=== PATIENT | female | born 1960 | race Caucasian/White ===

== ENCOUNTER 2018-03-21 17:08 | Emergency (ER) | payer BC ==
[~2018-03-21] VITALS: Ht 167.6 cm; Wt 86.2 kg
[2018-03-21] MEDS ORDERED: MIDODRINE HCL5 MG ORAL (17:13)
[2018-03-21] MEDS ORDERED: ATIVAN0.5 MG ORAL (17:13)
[2018-03-21] MEDS ORDERED: NS 250 ML IV ONE (17:22)
[2018-03-21 18:06] VITALS: BP 95/62
[2018-03-21 18:15] LABS: HEMATOCRIT 24.4 % (37.0-47.0); HEMOGLOBIN 8.7 G/DL (12.0-16.0); MEAN CORPUSCULAR VOLUME 85 FL (80-99); PLATELET COUNT 46 K/UL (150-450); RED BLOOD COUNT 2.87 M/UL (4.20-5.40); RED CELL DISTRIBUTION WIDTH 16.3 % (11.6-14.8); WHITE BLOOD COUNT 18.1 K/UL (4.8-10.8)
[2018-03-21] MEDS ORDERED: NS 250 ML IVPB ONE (18:15)
[2018-03-21 18:21] LABS: ANION GAP 10 mmol/L (5-15); BLOOD UREA NITROGEN 21 mg/dL (7-18); CARBON DIOXIDE 26 MMOL/L (21-32); CHLORIDE 97 MMOL/L (98-107); CREATININE 2.6 MG/DL (0.55-1.30); POTASSIUM 4.3 MMOL/L (3.5-5.1); SODIUM 133 MMOL/L (136-145)
[2018-03-21 18:36] LABS: ALANINE AMINOTRANSFERASE 13 U/L (12-78); ALBUMIN 1.9 G/DL (3.4-5.0); ALBUMIN/GLOBULIN RATIO 0.5 (1.0-2.7); ALKALINE PHOSPHATASE 152 U/L (46-116); ASPARTATE AMINO TRANSFERASE 46 U/L (15-37); BILIRUBIN,TOTAL 0.5 MG/DL (0.2-1.0); CKMB 0.8 NG/ML (0.0-3.6); CREATINE KINASE 12 U/L (26-308)
[2018-03-21] MEDS ORDERED: Pantoprazole Inj IVP ONE (18:45)
[2018-03-21] MEDS ORDERED: ALLOPURINOL300 M1 ORAL (19:08)
[2018-03-21] MEDS ORDERED: PANTOPRAZOLE SO40 MG ORAL (19:08)
[2018-03-21 19:28] VITALS: BP 95/62
--- NOTE | 2018-03-21 22:21 | Emergency Room Report ---
History of Present Illness General Chief Complaint: Palpitations Source: Significant Other Present Illness HPI 37-year-old female presents to ED for evaluation. Patient presenting with palpitations which started during dialysis today. Heart rate in the 140s. at bedside states that patient has diagnoses of lymphoma, tumor lysis syndrome. Recently started on dialysis. This is her second dialysis session. Patient has a temperature dialysis catheter in her right IJ. states the patient was discharged from [facility] on . History of gastric outlet obstruction. Patient notes nausea. Denies abdominal pain. Denies chest pain or shortness of breath. No other aggravating relieving factors. Denies any other associated symptoms Allergies: Coded Allergies: No Known Allergies (Unverified , 03/21/18) Patient History Past Medical History: renal disease, dialysis, other - lymphoma Past Surgical History: none Pertinent Family History: none Social History: Denies: smoking, alcohol use, drug use Last Menstrual Period: n/a Now: No Immunizations: UTD Reviewed Nursing Documentation: PMH: Agreed; PSxH: Agreed Nursing Documentation-PMH Hx Cancer: Yes - lymphoma since 01/2015, hospitalized 02/2018 for tumor lysis syndrome Hx Dialysis: Yes - MWF, fluid voerload, kidney failure Review of Systems All Other Systems: negative except mentioned in HPI Physical Exam Vital Signs Date Time Temp Pulse Resp B/P (MAP) Pulse Ox O2 Delivery O2 Flow Rate FiO2 03/21/18 17:02 98.9 140 18 106/50 98 Room Air 99.0 Sp02 EP Interpretation: reviewed, normal General Appearance: alert, GCS 15, non-toxic, mild distress Head: normocephalic Eyes: bilateral eye normal inspection, bilateral eye PERRL ENT: normal ENT inspection Neck: other - dialysis catheter R IJ Respiratory: chest non-tender, lungs clear, normal breath sounds, speaking full sentences Cardiovascular #1: no edema, tachycardia Gastrointestinal: distended Rectal: deferred Genitourinary: no CVA tenderness Musculoskeletal: normal inspection Neurologic: alert, oriented x3, responsive, motor strength/tone normal, sensory intact, speech normal Psychiatric: normal inspection Skin: normal inspection Lymphatic: normal inspection Medical Decision Making Diagnostic Impression: Primary Impression: Palpitations Additional Impressions: ESRD on dialysis Tumor lysis syndrome ER Course Hospital Course 57-year-old F presents ED complaining of palpitations, starting after dialysis Differential diagnoses include: afib, Vtach, SVT, anxiety, dehydration Clinical course Patient placed on stretcher. After initial history and physical I ordered labs , EKG, chest x-ray, IVFs. labs reviewed- Cr 2.5, trop negative, BNP > 2000, leukocytosis noted, Hb/HCt stable EKG - sinus tachycardia, no acute ischemic changes interpreted by me Chest x-ray-no cardiomegaly, no rib fracture, no pneumothorax, no acute process CT abdomen and pelvis shows gastric distention, possible gastric L obstruction I discussed findings with neprhologist Dr Villarreal; states that patient's care is very complicated and patient will require CRRT which is not available at [facility]. Patient will require transfer to [facility] transfer [place]. States that there is no bed availability for transfer. I discussed this with the and he states patient wants to sign out AMA and he will take her to [facility] understands the risks of leaving. Patient has competency to make her own decisions. Signed AMA form. I. I feel this is a highly complex case requiring extensive working including EKG/Rhythm strip, Xray/CT/US, Blood/urine lab work, repeat exams while in ED, and administration of strong opiates/narcotics for pain control, admission to hospital or close patient follow up. Diagnosis - palpitations, ESRD on dialysis, tumor lysis syndrome patient left AMA Labs Test 03/21/18 17:45 White Blood Count 18.1 K/UL (4.8-10.8) Red Blood Count 2.87 M/UL (4.20-5.40) Hemoglobin 8.7 G/DL (12.0-16.0) Hematocrit 24.4 % (37.0-47.0) Mean Corpuscular Volume 85 FL (80-99) Mean Corpuscular Hemoglobin 30.2 PG (27.0-31.0) Mean Corpuscular Hemoglobin Concent 35.5 G/DL (32.0-36.0) Red Cell Distribution Width 16.3 % (11.6-14.8) Platelet Count 46 K/UL (150-450) Mean Platelet Volume 8.5 FL (6.5-10.1) Neutrophils (%) (Auto) % (45.0-75.0) Lymphocytes (%) (Auto) % (20.0-45.0) Monocytes (%) (Auto) % (1.0-10.0) Eosinophils (%) (Auto) % (0.0-3.0) Basophils (%) (Auto) % (0.0-2.0) Differential Total Cells Counted 100 Neutrophils % (Manual) 89 % (45-75) Lymphocytes % (Manual) 2 % (20-45) Monocytes % (Manual) 3 % (1-10) Eosinophils % (Manual) 0 % (0-3) Basophils % (Manual) 0 % (0-2) Band Neutrophils 6 % (0-8) Platelet Estimate Decreased Platelet Morphology Normal Hypochromasia 1+ Anisocytosis 1+ Sodium Level 133 MMOL/L (136-145) Potassium Level 4.3 MMOL/L (3.5-5.1) Chloride Level 97 MMOL/L (98-107) Carbon Dioxide Level 26 MMOL/L (21-32) Anion Gap 10 mmol/L (5-15) Blood Urea Nitrogen 21 mg/dL (7-18) Creatinine 2.6 MG/DL (0.55-1.30) Estimat Glomerular Filtration Rate 19.1 mL/min (>60) Glucose Level 98 MG/DL (74-106) Calcium Level 10.0 MG/DL (8.5-10.1) Total Bilirubin 0.5 MG/DL (0.2-1.0) Aspartate Amino Transf (AST/SGOT) 46 U/L (15-37) Alanine Aminotransferase (ALT/SGPT) 13 U/L (12-78) Alkaline Phosphatase 152 U/L (46-116) Total Creatine Kinase 12 U/L (26-308) Creatine Kinase MB 0.8 NG/ML (0.0-3.6) Creatine Kinase MB Relative Index 6.6 Troponin I 0.000 ng/mL (0.000-0.056) Pro-B-Type Natriuretic Peptide 2635 pg/mL (0-125) Total Protein 5.4 G/DL (6.4-8.2) Albumin 1.9 G/DL (3.4-5.0) Globulin 3.5 g/dL Albumin/Globulin Ratio 0.5 (1.0-2.7) EKG Diagnostic Results Rate: tachycardiac Rhythm: NSR ST Segments: no acute changes ASA given to the pt in ED: No Rhythm Strip Diag. Results EP Interpretation: yes Rhythm: NSR, no PVC's Chest X-Ray Diagnostic Results Chest X-Ray Diagnostic Results : Chest X-Ray Ordered: Yes # of Views/Limited/Complete: 1 View Indication: Other - vomiting EP Interpretation: Yes Interpretation: no consolidation, no effusion, no pneumothorax, no acute cardiopulmonary disease Impression: No acute disease Electronically Signed by: Electronically signed by Jordan Marques MD Last Vital Signs Date Time Temp Pulse Resp B/P (MAP) Pulse Ox O2 Delivery O2 Flow Rate FiO2 03/21/18 19:28 99.0 148 18 95/62 98 Room Air 99.0 Status: improved Disposition: AGAINST MEDICAL ADVICE Condition: Serious Referrals: NON PHYSICIAN (PCP) Jordan Marques MD Mar 21, 2018 22:21
--- NOTE | 2018-03-23 13:49 | Diagnostic Imaging Report ---
Indication: Abdominal distention and vomiting Technique: Spiral acquisitions obtained through the abdomen and pelvis. No oral contrast utilized, per emergency room physician request No IV contrast utilized, per referring physician request.. Multiplanar reconstructions were generated. Total dose length product 1063.72 mGycm. CTDIvol(s) 18.16 mGy. Dose reduction achieved using automated exposure control Comparison: None Findings: There is extensive lymphadenopathy. Enlarged nodes are seen in the right groin, right greater than left in the bilateral iliac chains, within the presacral fat, throughout the mesenteric root, within the peritoneal space, and in the retroperitoneal region. The nodes are largest in the retroperitoneal region and the mesenteric root, some measuring over 7 cm in diameter. Numerous low-attenuation masses are seen throughout the liver, measuring up to 2.6 cm in diameter. The stomach is massively distended. The duodenum is less distended. However, there could be obstruction of the distal duodenum or proximal jejunum at the level of the ligament of Treitz. The lower esophageal sphincter appears to be patulous with free communication of the distal esophagus, which is somewhat dilated, with the gastric lumen. No definite small bowel distention, although evaluation is limited in the absence of oral contrast. There is a moderate amount of free intraperitoneal fluid. No free intraperitoneal air. The appendix is not definitely identified, but no findings to suggest acute appendicitis are evident. No evidence of diverticulosis or diverticulitis. Lack of IV contrast limits assessment of the solid organs. The gallbladder demonstrates small gallstones. There is no biliary ductal dilatation. The pancreas is grossly unremarkable although largely obscured by the surrounding masses. The spleen, adrenals are unremarkable. The right kidney demonstrates very mild hydronephrosis. Left kidney demonstrates moderate hydronephrosis. Neither ureter is well visualized. The uterus and adnexal structures are unremarkable. The bladder is unremarkable. The lung bases demonstrate some atelectasis on the right. There is a moderate to large left pleural effusion and considerable atelectasis and possibly consolidation of the left lung base. There is a 2 mm nodule in the right middle lobe There is considerable edema of the subcutaneous fat. Impression: Extensive lymphadenopathy, as detailed above. Per review of electronic medical record, patient has history of lymphoma Multiple hepatic masses, presumably hepatic involvement by tumor. Dilated stomach, probably due to obstruction of the duodenum at the level of ligament of Treitz from the above. Left greater than right hydronephrosis, presumably due to ureteral obstruction by retroperitoneal tumor Moderate ascites Other manifestations of anasarca, including an diffuse edema of the subcutaneous fat, sided pleural effusion Patulous lower esophageal sphincter Left greater than right basilar atelectasis Cholelithiasis 2 mm right middle lobe nodule This agrees with the preliminary interpretation provided overnight by [facility]erad[facility] service. The CT scanner at [facility] is accredited by the [employer] and the scans are performed using protocols designed to limit radiation exposure to as low as reasonably achievable to attain images of sufficient resolution adequate for diagnostic evaluation.
--- NOTE | 2018-03-23 13:50 | Diagnostic Imaging Report ---
Indication: Shortness of breath Technique: One view of the chest Comparison: none Findings: Lungs and pleural spaces are clear. Heart size is normal. There is a right jugular temporary dialysis catheter and left arm PICC again demonstrated. The stomach is distended Impression: No acute process
== END 2018-03-21 19:29 | disposition left against medical advice (07) ==
LOC: EDBD 17:08 → EMR 17:45 → CANBEDREQ 19:29 → EMR 19:29
DX: R00.2 Palpitations (principal); N18.6 End stage renal disease; Z99.2 Dependence on renal dialysis; E88.3 Tumor lysis syndrome; Z85.72 Personal history of non-Hodgkin lymphomas; D72.829 Elevated white blood cell count, unspecified; R00.0 Tachycardia, unspecified
CPT/HCPCS: 36415; 71045; 74176; 80053; 82550; 82553; 83880; 84484; 85007; 85025; 93005; 96360; 96361; 96374; 96375; 99284; C9113; J2405; J7050